=== PATIENT | male | born 2000 | race Caucasian/White ===

== ENCOUNTER 2022-12-09 19:48 | Emergency (ER) | payer MEDICAID, SELFPAY ==
[2022-12-09 19:55] VITALS: BP 113/70; PULSE 82; RESP 18; TEMP 37; O2SAT 99; BMI 24.4
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
--- NOTE | 2022-12-09 20:39 | ED.NURSE ---
Wound cleansed with sterile water. Surgifoam applied to wound bed. Wrapped with coban. Extra supplies sent with pt upon d/c.
== END 2022-12-09 20:35 | disposition home or self-care (01) ==
LOC: ED 20:32
PROVIDERS: Emergency Provider Emergency Medicine
DX: S50.311A Abrasion of right elbow, initial encounter (principal); V18.0XXA Pedal cycle driver injured in noncollision transport accident in nontraffic accident, initial encounter
CPT/HCPCS: 99282; 99283